=== PATIENT | male | born 1975 | race Caucasian/White ===

== ENCOUNTER → 2018-10-31 | Outpatient (CLI) | payer OTHER ==
--- NOTE | 2018-11-01 10:34 | MR ---
EXAMINATION TYPE: MR shoulder RT wo con DATE OF EXAM: 10/31/2018 9:36 PM COMPARISON: 05/01/2016 HISTORY: Rt shoulder pain x 3 yrs TECHNIQUE: Multiplanar multispin echo imaging of the right shoulder was performed. FINDINGS: Rotator cuff : Mild heterogeneity and thickening of the supraspinatus tendon compatible with a chroni c tendinopathy. Remaining constituents of the rotator cuff are intact. Bursa: No bursal effusion or thickening is seen. Musculature: There is no muscular tear, contusion, or atrophy. Acromioclavicular joint : There are mild degenerative changes of the acromioclavicular joint. There is no anterior or lateral acromial downsloping. Osseous structures : There are no fractures or regions of abnormal bone marrow signal intensity. Long biceps tendon : The biceps tendon is normally situated within the bicipital groove. No complete or partial biceps tendon tear is present. Glenohumeral Joint fluid : Anterior labral defect is stable. Correlate for tear. Cartilage and Bone : No focal hyaline cartilage defects are noted. No Hill-Sachs, reverse Hill-Sachs , or bony Bankart lesions are seen. Labrum : There are no SLAP or soft tissue Bankart lesions. No paralabral cysts are seen. OTHER FINDINGS : none IMPRESSION: 1. Stable supraspinatus tendinopathy. 2. Anterior glenoid labral defect persists may reflect tear.
== END | disposition home or self-care (01) ==
LOC: RADMRIMAIN 21:02
PROVIDERS: ATTEND Orthopaedic Surgery
DX: M75.81 Other shoulder lesions, right shoulder (principal)

== ENCOUNTER 2018-12-19 07:33 | Day surgery (SDC) | payer OTHER ==
[2018-12-16 15:11] VITALS: BMI 39.5
--- NOTE | 2018-12-18 13:29 | HP ---
HISTORY AND PHYSICAL DATE OF SURGERY: 12/19/2018 Geovani Cho is a 43-year-old patient seen with progressive right shoulder pain. We discussed treatment options. He elected to proceed with arthroscopy. Consent was obtained. PAST MEDICAL HISTORY: His past medical history is depression, hypertension, [id number] diabetes, hyperlipidemia. PAST SURGICAL HISTORY: Left shoulder rotator cuff repair. DAILY MEDICATIONS: 1. Alprazolam. 2. Amlodipine. 3. Atorvastatin. 4. Carvedilol,. 5. Furosemide. 6. Lisinopril. 7. Metformin. 8. [place]. ALLERGIES: None. SOCIAL HISTORY: Denies current tobacco use. PHYSICAL EVALUATION RIGHT SHOULDER: Flexion 90 degrees, abduction 70 degrees, external rotation is 30 degrees with weakness. Tenderness along the anterolateral acromion rotator cuff insertion site. Positive impingement sign at 90 degrees. Distal neurovascular exam is intact. Radiographs of the right shoulder revealed a type 2 anterior acromion and cystic changes of the tuberosity. An MRI of the right shoulder revealed a labral tear. IMPRESSION: Right shoulder impingement with labral tear and possible rotator cuff tear. PLAN: Right shoulder arthroscopy with subacromial decompression, possible arthroscopic rotator cuff repair and debridement. MMODL / IJN: [id number] /
[~2018-12-19 07:33] MED LIST: DEXAMETHASONE SOD PHOSPHATE 10 MG/ML 1 ML VIAL IV ONE; HYDROmorphone 0.5 MG/0.5 ML SYRINGE IVP PRN; LACTATED RINGERS 1,000 ML IV SCH; LIDOCAINE 1% 20 ML VIAL (10MG/ML) FOR IV START INTRADERMA PRN; ONDANSETRON 4 MG/2 ML VIAL IVP ONE; SCOPOLAMINE 1.5MG/72HR PATCH TRANSDERM ONE; ceFAZolin IN SWFI 2 GM/20 ML SYRINGE IVP ONE
[2018-12-19 08:27] LABS: Glucose,Whole Blood 187 mg/dL (75-99)
[2018-12-19] MEDS ORDERED: MIDAZOLAM 2 MG/2 ML VIAL IVP ONE (08:59)
[2018-12-19] MEDS ORDERED: ROCURONIUM BROMIDE 10 MG/ML 10 ML VIAL IV ONE (09:27)
[2018-12-19] MEDS ORDERED: SUCCINYLCHOLINE CHLORIDE VIAL 200 MG/10 ML VIAL IV ONE (09:27)
[2018-12-19] MEDS ORDERED: PROPOFOL 10 MG/ML 20 ML VIAL IV ONE (09:27)
[2018-12-19] MEDS ORDERED: ROPIVACAINE 5 MG/ML 30 ML VIAL ONE (09:27)
[2018-12-19] MEDS ORDERED: LIDOCAINE 1% INJ 10MG/ML (20 ML MDV) ONE (09:27)
[2018-12-19] MEDS ORDERED: ePHEDrine SULFATE/0.9% NACL/PF 50 MG/5 ML SYRINGE IV ONE (09:27)
[2018-12-19] MEDS ORDERED: LACTATED RINGERS 1,000 ML IV ONE (10:20)
--- NOTE | 2018-12-19 11:21 | P.OP ---
Date of Procedure: 12/19/18 Preoperative Diagnosis: Right shoulder impingement Postoperative Diagnosis: 1. Right shoulder impingement 2. Right shoulder partial rotator cuff 3. Right shoulder acromioclavicular joint osteoarthritis 4. Right shoulder partial long head biceps tendon tear 5. Right shoulder superficial labral tear Procedure(s) Performed: 1. Right shoulder arthroscopic subacromial decompression 2. Right shoulder arthroscopic debridement rotator cuff tear 3. Right shoulder arthroscopic Zoltan procedure 4. Right shoulder arthroscopic biceps tenotomy 5. Right shoulder arthroscopic debridement labral tear Anesthesia: GETA, regional (Interscalene block) Surgeon: Nikos Kaminski Estimated Blood Loss (ml): 10 Pathology: none sent Condition: stable Disposition: PACU Indications for Procedure: 43-year-old patient seen with progressive right shoulder pain. After having treatment options discussed, he elected to proceed with arthroscopy. Operative Findings: See description of procedure Description of Procedure: Patient underwent an interscalene block by department of anesthesia. The patient was then taken to the operative suite. The patient underwent a general anesthetic by the department of anesthesia. The patient was placed into a lateral position and secured. There was appropriate padding of the bony prominence. Right shoulder was then prepped and draped in normal sterile orthopedic fashion. We placed the extremity in 10 pounds of longitudinal traction. A posterior incision was now made for a posterior working portal site. The trocar and cannula were inserted into the glenohumeral joint. Arthroscopy was initiated. Spinal needle was now inserted anteriorly, to ascertain the anterior working portal site. An incision was now made in that area, a trocar was inserted followed by a probe. There was an obvious superficial tear of the anterior labrum present. There was some grade 1, she changes of the anterior aspect glenoid with no osteochondral tears. There was a there was some hyperemia and fraying of the biceps tendon. The remaining labrum was stable. I performed an arthroscopic biceps tenotomy. I debrided the superficial labral tear down to stable tissue. The residual labrum was probed and found to be stable. Instruments now removed from the glenohumeral joint. Utilizing the posterior working portal site, the trocar and cannula were inserted into the subacromial space. Arthroscopy initiated. I made an incision 2 fingerbreadths lateral to the acromion. I introduced my trocar followed by my ArthroCare ablator. I now began ablating thick subacromial bursal tissue, which exposed the undersurface of the anterior acromion. There was diminished subacromial space. There was a very prominent anterior acromion. A motorized bur was introduced and a subacromial decompression was performed. I also excised some osteophytes off the inferior aspect of the distal clavicle. The AC joint was visualized and noted to be fairly arthritic. The motorized bur was introduced in the anterior portal site and a Zoltan procedure was performed without difficulty, decompressing the AC joint nicely. I turned my attention to the rotator cuff. There was an area of superficial tearing along the midportion distal supraspinatus. I used a motorized shaver and debrided that down to stable tendon tissue. The partial tearing involved about 25% of the superficial fibers and the remaining 75% appeared stable with no evidence of a full-thickness tear or perforation. I now injected 1 mL Renue intra-articular. Instruments now removed from the portal sites. All portal sites were approximated with nylon suture. Sterile dressings were applied followed by a shoulder sling. The patient was awakened, transferred to a bed, and taken to recovery in stable condition.
[2018-12-19 11:25] VITALS: TEMP 97.3
[2018-12-19 11:33] LABS: Glucose,Whole Blood 246 mg/dL (75-99)
[2018-12-19 12:39] VITALS: RESP 18
[2018-12-19 13:07] VITALS: BP 125/84; PULSE 90
--- NOTE | 2018-12-19 18:20 | P.ONQ ---
Anesthesiology Proc Note - PNB - Peripheral Nerve Block Performed Right Interscalene Single Time Out Performed: Yes Procedure Start Time: 08:59 Procedure Stop Time: 09:05 Indication: Acute Post-Operative Pain, Requested by physician Sedation Type: Sedate with meaningful contact maintained Preparation: Sterile Prep Position: Supine Needle Size: 50mm (2") Needle Gauge: 21 Technique: Ultrasound Injectate: 0.5% Ropivacaine (see comment for volume) (ropi .5% 30cc) Blood Aspirated: No Pain Paresthesia on Injection Noted: No Resistance on Injection: Normal Events: Uneventful and Well Tolerated
== END 2018-12-19 13:19 | disposition home or self-care (01) ==
LOC: OR 07:33
PROVIDERS: ATTEND Orthopaedic Surgery
DX: M75.101 Unspecified rotator cuff tear or rupture of right shoulder, not specified as traumatic (principal); M75.41 Impingement syndrome of right shoulder; M19.011 Primary osteoarthritis, right shoulder; S46.111A Strain of muscle, fascia and tendon of long head of biceps, right arm, initial encounter; S43.431A Superior glenoid labrum lesion of right shoulder, initial encounter; X58.XXXA Exposure to other specified factors, initial encounter; M25.711 Osteophyte, right shoulder; F32.9 Major depressive disorder, single episode, unspecified; I10 Essential (primary) hypertension; E11.9 Type 2 diabetes mellitus without complications; Z79.84 Long term (current) use of oral hypoglycemic drugs; E78.5 Hyperlipidemia, unspecified; N40.0 Benign prostatic hyperplasia without lower urinary tract symptoms; F41.9 Anxiety disorder, unspecified; Z79.82 Long term (current) use of aspirin; Z79.899 Other long term (current) drug therapy; Z79.891 Long term (current) use of opiate analgesic
CPT/HCPCS: 64415; 29823; 29824; C1713; C1765; J2250; J0330; J1100; J2405; J2001; J2795; J2704; J0690

== ENCOUNTER → 2022-12-01 | Outpatient (CLI) | payer OTHER ==
[~2022-12-01] MED LIST changes: -DEXAMETHASONE SOD PHOSPHATE 10 MG/ML 1 ML VIAL IV ONE; -HYDROmorphone 0.5 MG/0.5 ML SYRINGE IVP PRN; -LACTATED RINGERS 1,000 ML IV SCH; -LIDOCAINE 1% 20 ML VIAL (10MG/ML) FOR IV START INTRADERMA PRN; -ONDANSETRON 4 MG/2 ML VIAL IVP ONE; -SCOPOLAMINE 1.5MG/72HR PATCH TRANSDERM ONE; +SODIUM CHLORIDE 0.9% 500 ML 500 ML in EMPTY BAG 1 BAG IV PRN; -ceFAZolin IN SWFI 2 GM/20 ML SYRINGE IVP ONE
[2022-12-01 10:26] VITALS: RESP 16; TEMP 98.2
[2022-12-01 10:48] LABS: Basophils # (A) 0.1 k/uL (0-0.2); Basophils % (A) 2 %; Eosinophils # (A) 0.1 k/uL (0-0.7); Eosinophils % (A) 3 %; HCT 47.8 % (39.0-53.0); HGB 16.6 gm/dL (13.0-17.5); Lymphocytes # (A) 1.4 k/uL (1.0-4.8); Lymphocytes % (A) 27 %; MCHC 34.7 g/dL (31.0-37.0); MCV 89.4 fL (80.0-100.0); Mean Platelet Volume 7.6; Monocytes # (A) 0.4 k/uL (0-1.0); Monocytes % (A) 7 %; Neutrophils % (A) 58 %; Platelet Count 151 k/uL (150-450); RBC 5.35 m/uL (4.30-5.90); RDW 13.4 % (11.5-15.5); WBC 5.1 k/uL (3.8-10.6)
[2022-12-01 11:16] VITALS: BP 92/61; PULSE 84
== END ==
LOC: PROCWHC3 10:13
PROVIDERS: ATTEND Internal Medicine
DX: D75.1 Secondary polycythemia (principal); Z87.891 Personal history of nicotine dependence
CPT/HCPCS: 85025; 99195

== ENCOUNTER → 2023-02-23 | Outpatient (CLI) | payer OTHER ==
[2023-02-23 09:16] VITALS: RESP 16; TEMP 97.9
[2023-02-23 09:20] LABS: Basophils # (A) 0.1 k/uL (0-0.2); Basophils % (A) 1 %; Eosinophils # (A) 0.2 k/uL (0-0.7); Eosinophils % (A) 2 %; HCT 49.5 % (39.0-53.0); HGB 16.7 gm/dL (13.0-17.5); Lymphocytes # (A) 2.2 k/uL (1.0-4.8); Lymphocytes % (A) 19 %; MCH 31.6 pg (25.0-35.0); MCHC 33.7 g/dL (31.0-37.0); MCV 93.7 fL (80.0-100.0); Mean Platelet Volume 6.7; Monocytes # (A) 0.6 k/uL (0-1.0); Monocytes % (A) 5 %; Neutrophils # (A) 8.6 k/uL (1.3-7.7); Neutrophils % (A) 72 %; Platelet Count 328 k/uL (150-450); RBC 5.29 m/uL (4.30-5.90); RDW 13.1 % (11.5-15.5); WBC 11.9 k/uL (3.8-10.6)
[2023-02-23 09:52] VITALS: BP 93/66; PULSE 78
== END ==
LOC: PROCWHC3 09:06
PROVIDERS: ATTEND Internal Medicine
DX: D75.1 Secondary polycythemia (principal); Z87.891 Personal history of nicotine dependence
CPT/HCPCS: 36415; 85025; 99195

== ENCOUNTER → 2023-11-26 | Outpatient (CLI) | payer OTHER ==
[2023-11-26 12:38] LABS: Basophils # (A) 0.1 k/uL (0-0.2); Basophils % (A) 1 %; Eosinophils # (A) 0.2 k/uL (0-0.7); Eosinophils % (A) 2 %; HCT 54.3 % (39.0-53.0); HGB 18.7 gm/dL (13.0-17.5); Lymphocytes # (A) 2.2 k/uL (1.0-4.8); Lymphocytes % (A) 25 %; MCH 32.5 pg (25.0-35.0); MCHC 34.4 g/dL (31.0-37.0); MCV 94.4 fL (80.0-100.0); Mean Platelet Volume 7.8; Monocytes # (A) 0.4 k/uL (0-1.0); Monocytes % (A) 5 %; Neutrophils # (A) 5.8 k/uL (1.3-7.7); Neutrophils % (A) 66 %; Platelet Count 195 k/uL (150-450); RBC 5.75 m/uL (4.30-5.90); WBC 8.8 k/uL (3.8-10.6)
[2023-11-26 14:00] VITALS: BP 142/88; PULSE 70; RESP 16; TEMP 98.3
== END ==
LOC: PROCWHC3 11:47
PROVIDERS: ATTEND Internal Medicine Hematology & Oncology
DX: D75.1 Secondary polycythemia (principal)
CPT/HCPCS: 36415; 85025; 99195

== ENCOUNTER → 2024-02-25 | Outpatient (CLI) | payer OTHER ==
[2024-02-25 09:23] LABS: Basophils # (A) 0.1 k/uL (0-0.2); Basophils % (A) 1 %; Eosinophils # (A) 0.2 k/uL (0-0.7); Eosinophils % (A) 3 %; HCT 52.7 % (39.0-53.0); HGB 18.5 gm/dL (13.0-17.5); Lymphocytes # (A) 1.7 k/uL (1.0-4.8); Lymphocytes % (A) 22 %; MCH 33.5 pg (25.0-35.0); MCV 95.6 fL (80.0-100.0); Mean Platelet Volume 7.9; Monocytes # (A) 0.5 k/uL (0-1.0); Monocytes % (A) 6 %; Neutrophils % (A) 66 %; Platelet Count 211 k/uL (150-450); RBC 5.52 m/uL (4.30-5.90); RDW 13.4 % (11.5-15.5); WBC 7.6 k/uL (3.8-10.6)
[2024-02-25 09:49] VITALS: RESP 16; TEMP 98.3
[2024-02-25 10:32] VITALS: BP 91/52; PULSE 91
== END ==
LOC: PROCWHC3 09:03
PROVIDERS: ATTEND Internal Medicine Hematology & Oncology
DX: D45 Polycythemia vera (principal)
CPT/HCPCS: 85025; 99195

== ENCOUNTER → 2024-05-26 | Outpatient (CLI) | payer OTHER ==
[2024-05-26 13:06] VITALS: RESP 16; TEMP 98.2
[2024-05-26 13:19] LABS: Basophils % (A) 0 %; Eosinophils # (A) 0.2 k/uL (0-0.7); Eosinophils % (A) 3 %; HCT 47.3 % (39.0-53.0); HGB 15.5 gm/dL (13.0-17.5); Lymphocytes # (A) 1.8 k/uL (1.0-4.8); Lymphocytes % (A) 29 %; MCHC 32.7 g/dL (31.0-37.0); MCV 97.8 fL (80.0-100.0); Mean Platelet Volume 7.7; Monocytes # (A) 0.4 k/uL (0-1.0); Monocytes % (A) 7 %; Neutrophils # (A) 3.6 k/uL (1.3-7.7); Neutrophils % (A) 58 %; Platelet Count 171 k/uL (150-450); RBC 4.84 m/uL (4.30-5.90); WBC 6.2 k/uL (3.8-10.6)
[2024-05-26 14:05] VITALS: BP 136/80; PULSE 73
== END ==
LOC: PROCWHC3 12:57
PROVIDERS: ATTEND Internal Medicine Hematology & Oncology
DX: D75.1 Secondary polycythemia (principal)
CPT/HCPCS: 36415; 85025; 99195

== ENCOUNTER → 2024-12-08 | Outpatient (CLI) | payer OTHER ==
[~2024-12-08] MED LIST changes: +SODIUM CHLORIDE 0.9% 250 ML in EMPTY BAG 1 BAG IV PRN
[2024-12-08 11:58] VITALS: RESP 16; TEMP 98.1
[2024-12-08 12:07] LABS: Basophils # (A) 0.1 k/uL (0-0.2); Basophils % (A) 1 %; Eosinophils # (A) 0.2 k/uL (0-0.7); Eosinophils % (A) 2 %; HCT 47.5 % (39.0-53.0); HGB 15.5 gm/dL (13.0-17.5); Lymphocytes # (A) 1.5 k/uL (1.0-4.8); Lymphocytes % (A) 15 %; MCH 30.6 pg (25.0-35.0); MCHC 32.7 g/dL (31.0-37.0); MCV 93.6 fL (80.0-100.0); Monocytes # (A) 0.5 k/uL (0-1.0); Monocytes % (A) 5 %; Neutrophils # (A) 7.7 k/uL (1.3-7.7); Neutrophils % (A) 77 %; Platelet Count 300 k/uL (150-450); RBC 5.07 m/uL (4.30-5.90); RDW 13.6 % (11.5-15.5); WBC 10.1 k/uL (3.8-10.6)
[2024-12-08 12:41] VITALS: BP 112/75; PULSE 81
== END ==
LOC: PROCWHC3 11:35
PROVIDERS: ATTEND Internal Medicine
DX: D75.1 Secondary polycythemia (principal)
CPT/HCPCS: 36415; 85025; 99195

== ENCOUNTER → 2025-03-09 | Outpatient (CLI) | payer OTHER ==
--- NOTE | 2025-03-09 19:15 | MR ---
EXAMINATION TYPE: MR shoulder LT wo con DATE OF EXAM: 03/09/2025 5:45 PM COMPARISON: 02/03/2025.. CLINICAL INDICATION: Male, 49 years old with history of M25.512 LEFT SHOULDER PAIN; PHH, LT shoulder pain and stiffness x3-4 months, Hx of LT shoulder rotor cuff tear repair 2007 TECHNIQUE: Multi planar, multi sequence imaging was performed of the shoulder including: Axial and coronal dorian n density fat-saturated sequences, T2 fat-saturated sagittal sequence, and T1-weighted imaging. No G adolinium was given. FINDINGS: Supraspinatus tendon: Rotator cuff repair changes. Increased signal in the tendon near the inserti on. No full-thickness tear identified. Infraspinatus tendon: Increased signal in the tendon near the insertion .No full-thickness tear i dentified. Subscapularis tendon: Increased signal in the tendon near the insertion. No full-thickness tear i dentified. Teres minor tendon: Intact Long head biceps tendon: Intact, fluid surrounding the long head of biceps tendon is present prox imally. Appropriately positioned within the bicipital groove. Normal insertion at the bicipital ancho r. Acromioclavicular joint: Susceptibility artifact in this shoulders likely from prior surgical interv ention. Mild osteoarthrosis. Normal subacromial space. No effusion. Glenohumeral joint: There is thickening of the inferior glenohumeral ligament. Mild osteoarthrosis . Normal articular cartilage. No effusion. Glenoid labrum: Posterior tear present. No displaced tears visualized. Muscle volume: Normal. Bone marrow: Normal. Soft tissues: Unremarkable. Joint/bursal fluid: None IMPRESSION: 1. Thickening of the inferior glenohumeral ligament correlate for adhesive capsulitis. 2. Posterior labral tear. 3. Tenosynovitis of the long head of the biceps tendon. 4. Supraspinatus, subscapular bursa and infraspinatus tendinosis. 5. Rotator cuff repair changes. No evidence for muscle atrophy. No full-thickness tear identified. 6. Mild acromioclavicular joint arthropathy. [facility], , 03/09/2025 7:13 PM
== END | disposition home or self-care (01) ==
LOC: RADMRIMAIN 15:33
PROVIDERS: ATTEND Orthopaedic Surgery
DX: M67.814 Other specified disorders of tendon, left shoulder (principal); M19.012 Primary osteoarthritis, left shoulder; M75.112 Incomplete rotator cuff tear or rupture of left shoulder, not specified as traumatic; M65.912 Unspecified synovitis and tenosynovitis, left shoulder

== ENCOUNTER 2025-05-28 07:25 | Day surgery (SDC) | payer OTHER ==
[2025-05-27 13:15] VITALS: BMI 34.0
--- NOTE | 2025-05-27 16:21 | HP ---
HISTORY AND PHYSICAL DATE OF SURGERY: Surgery is scheduled for 05/28/2025. HISTORY OF PRESENT ILLNESS: Geovani Cho is a 49-year-old gentleman seen with progressive left shoulder pain. We discussed options. He elected to proceed with arthroscopy. Consent obtained. PAST MEDICAL HISTORY: Depression, hypertension, [id number] diabetes, and hyperlipidemia. PAST SURGICAL HISTORY: Shoulder arthroscopy, bilateral. DAILY MEDICATIONS: Alprazolam, amlodipine, atorvastatin, carvedilol, furosemide, lisinopril, metformin, and Jardiance. ALLERGIES: None. SOCIAL HISTORY: Denies current tobacco use. PHYSICAL EVALUATION OF THE LEFT SHOULDER: He has a previous well-healed anterior incision. Flexion is 80 degrees. Abduction is 70 degrees. External rotation is 10 degrees with pain and weakness. Tenderness anterior lateral acromion, bicipital groove, rotator cuff along the biceps tendon. Moderate subacromial crepitation. Impingement positive 80 degrees. Cross-body adduction sign is positive. Drop-arm sign is positive. Distal neurovascular exam intact. RADIOGRAPHS: Left shoulder radiographs, type 2 acromion, cystic changes of the greater tuberosity. Evidences for previous open Zoltan procedure. MRI of left shoulder labral tear. Biceps tendinitis. Adhesive capsulitis. Partial rotator cuff tear. IMPRESSION: 1. Left shoulder impingement with rotator cuff tear and labral tear. 2. Left shoulder bicipital tendinitis. 3. Left shoulder adhesive capsulitis. PLAN: Left shoulder arthroscopy with subacromial decompression, possible rotator cuff repair, debridement of labral tear, biceps tenodesis, and lysis of adhesions. MMODL / IJN: [id number] /
[2025-05-28] MEDS ORDERED: SCOPOLAMINE 1 MG/72 HR PATCH TRANSDERM ONE (07:49)
[2025-05-28] MEDS ORDERED: HYDROmorphone 0.5 MG/0.5 ML SYRINGE IVP PRN (07:49)
[2025-05-28] MEDS: IV FLUID CONTINUATION 1,000 ML IV ONE (07:53)
[2025-05-28 08:20] LABS: Glucose,Whole Blood 125 mg/dL (70-110)
[2025-05-28] MEDS: fentaNYL (PF) 50 MCG/ML 2 ML AMP IVP ONE (08:37)
[2025-05-28] MEDS: MIDAZOLAM 2 MG/2 ML VIAL IV ONE (08:37)
[2025-05-28] MEDS: LACTATED RINGERS 1,000 ML IV SCH (08:45)
[2025-05-28] MEDS: DEXAMETHASONE SOD PHOSPHATE 4 MG/ML 1 ML VIAL IV ONE (08:46)
[2025-05-28] MEDS: ONDANSETRON 4 MG/2 ML VIAL IVP ONE (08:46)
--- NOTE | 2025-05-28 08:57 | P.ANPRN ---
Procedure Note - Anesthesia - Nerve Block Performed Left Interscalene Single Time Out Performed: Yes Date of Procedure: 05/28/25 Procedure Start Time: 08:36 Procedure Stop Time: 08:43 Location of Patient: PreOp Indication: Acute Post-Operative Pain, Requested by Surgeon Sedation Type: Sedate with meaningful contact maintained Preparation: Sterile Prep Position: Supine Needle Types: Pajunk Needle Gauge: 21 Ultrasound used to visualize needle placement: Yes Ultrasound used to observe medication spread: Yes Injectate: 0.5% Ropivacaine (see comment for volume) (30 mL +4 mg dexamethasone) Blood Aspirated: No Pain Paresthesia on Injection Noted: No Resistance on Injection: Normal Image Stored and Saved: Yes Events: Uneventful and Well Tolerated
[2025-05-28] MEDS ORDERED: KETOROLAC 15 MG/ML 1 ML VIAL ONE (09:09)
[2025-05-28] MEDS ORDERED: PROPOFOL 10 MG/ML 20 ML VIAL IV ONE (09:09)
[2025-05-28] MEDS ORDERED: DEXAMETHASONE SOD PHOSPHATE 4 MG/ML 1 ML VIAL ONE (09:09)
[2025-05-28] MEDS ORDERED: ROPIVACAINE 5 MG/ML 30 ML VIAL ONE (09:09)
[2025-05-28] MEDS ORDERED: LIDOCAINE 1% INJ 10MG/ML (20 ML MDV) ONE (09:09)
[2025-05-28] MEDS ORDERED: GLYCOPYRROLATE 0.2 MG/ML 2 ML VIAL ONE (09:09)
[2025-05-28] MEDS ORDERED: ePHEDrine 50 MG/ML 1 ML VIAL ONE (09:09)
[2025-05-28] MEDS ORDERED: fentaNYL (PF) 50 MCG/ML 2 ML AMP ONE (09:09)
[2025-05-28] MEDS ORDERED: SUCCINYLCHOLINE CHLORIDE 200 MG/10 ML VIAL IV ONE (09:09)
[2025-05-28 10:43] VITALS: TEMP 97
[2025-05-28 10:48] LABS: Glucose,Whole Blood 137 mg/dL (70-110)
--- NOTE | 2025-05-28 10:50 | P.OP ---
Date of Procedure: 05/28/25 Preoperative Diagnosis: Left shoulder impingement Postoperative Diagnosis: 1. Left shoulder rotator cuff tear 2. Left shoulder impingement 3. Left shoulder bicipital tendinitis 4. Left shoulder superficial labral tear Procedure(s) Performed: 1. Left shoulder arthroscopic rotator cuff repair 2. Left shoulder arthroscopic subacromial decompression 3. Left shoulder arthroscopic biceps tenodesis 4. Left shoulder arthroscopic debridement labral tear Implants: 1Arthrex 5.5 swivel lock anchor 1Arthrex 4.75 swivel lock anchor Anesthesia: GETA, regional (Interscalene block) Surgeon: Nikos Kaminski Engineering Specialist #1: Davi Parker Estimated Blood Loss (ml): 7 Pathology: none sent Condition: stable Disposition: PACU Indications for Procedure: 49-year-old patient seen with progressive left shoulder pain. After having treatment options discussed, he elected to proceed with arthroscopy. Operative Findings: See description of procedure Description of Procedure: Patient underwent an interscalene block by department of anesthesia. The patient was then taken to the operative suite. The patient underwent a general anesthetic by the department of anesthesia. The patient was placed into a lateral position and secured. There was appropriate padding of the bony prominence. Left shoulder was then prepped and draped in normal sterile orthopedic fashion. We placed the extremity in 10 pounds of longitudinal traction. A posterior incision was now made for a posterior working portal site. The trocar and cannula were inserted into the glenohumeral joint. Arthroscopy was initiated. Spinal needle was now inserted anteriorly, to ascertain the anterior working portal site. An incision was now made in that area, a trocar was inserted followed by a probe. There was superficial tearing of the superior and anterior labrum. There were significant hyperemic changes of the long head biceps tendon consistent with chronic tendinitis. There was no significant mel dromalacia noted. I used a motorized shaver and debride out the superficial labral tears again and stable labral tissue. I now placed a cannula through the anterior portal site. I passed a loop and tack stitch to the biceps tendon and release it from the superior labral anchor. I now with the assistance of Rene WALDEN punctual at the interval for insertion of an anchor. I passed the suture limbs through the eyelet of an Arthrex 4.75 swivel lock anchor. I placed the eyelet into the prepunch hole and held in position while Rene WALDEN tensioned the suture and deployed the anchor with good fixation noted. The residual suture line was clipped. We had a stable appearing biceps tenodesis. Instruments and cannula were now removed from the portal sites. Utilizing the posterior working portal site, the trocar and cannula were inserted into the subacromial space. Arthroscopy initiated. I made an incision 2 fingerbreadths lateral to the acromion. I introduced my trocar followed by my ArthroCare ablator. I now began ablating thick subacromial bursal tissue, which exposed the undersurface of the anterior acromion. There was diminished subacromial space. There was a very prominent anterior acromion. A motorized bur was introduced and a subacromial decompression was performed. I noted a previous [place] procedure. I turned my attention to the rotator cuff tendon. Upon probing the tendon and noted a full-thickness perforation of the distal supraspinatus tendon. I had used a motorized shaver and debrided the margins getting down to stable tendon tissue. The defect/tear measured approximately 1 cm and was freely mobile over the footprint. I abraded the footprint with a motorized bur. With the assistance of Rene WALDEN past 2 everted mattress sutures through good bites of rotator cuff tendon. I now punched a hole at the footprint area for insertion of an anchor. All 4 limbs of suture were passed through the eyele of an Arthrex 5.5 swivel lock anchor. I placed the eyelet into the prepunched hole. I held it in position while Rene WALDEN tension the suture and deployed the anchor with good fixation noted. All residual suture limbs were now clipped. We had good compression of the tendon along the entire footprint. Instruments now removed from the portal sites. All portal sites were approximated with nylon suture. Sterile dressings were applied fo llowed by a shoulder immobilizer. Davi WALDEN assisted in all aspects of this case. The patient was awakened, transferred to a bed, and taken to recovery in stable condition.
[2025-05-28 12:22] VITALS: RESP 16
[2025-05-28 12:57] VITALS: BP 131/94; PULSE 89
== END 2025-05-28 13:07 | disposition home or self-care (01) ==
LOC: OR 07:25
PROVIDERS: ATTEND Orthopaedic Surgery
DX: S43.402A Unspecified sprain of left shoulder joint, initial encounter (principal); M75.102 Unspecified rotator cuff tear or rupture of left shoulder, not specified as traumatic; M75.22 Bicipital tendinitis, left shoulder; M75.42 Impingement syndrome of left shoulder; E11.9 Type 2 diabetes mellitus without complications; E78.5 Hyperlipidemia, unspecified; G89.18 Other acute postprocedural pain; I10 Essential (primary) hypertension; M75.02 Adhesive capsulitis of left shoulder; F32.A Depression, unspecified; Z79.84 Long term (current) use of oral hypoglycemic drugs; Z79.899 Other long term (current) drug therapy; X58.XXXA Exposure to other specified factors, initial encounter
CPT/HCPCS: 64415; 29826; 29827; 29828; C1713 ×3; J2250; J0330; J1100; J0690; J2405; J2003; J3010; J2795; J1885; J2704; J1596